=== PATIENT | male | born 1960 | race Caucasian/White ===

== ENCOUNTER → 2017-02-17 | Outpatient (CLI) | payer BC ==
[~2017-02-17] MED LIST: CETI10TA56 PO; CYCL-83 PO; DIPH25CA84 PO; MELO-28 PO; OMEP20CA81 PO; TRAM-277 PO; [UNRECOGNIZED DRUG - CODE] PO
--- NOTE | 2017-02-17 12:03 | DI ---
Indication: ITS.REASON: Z96.652 S/P LEFT TKA; M79.662 LEFT CALF PAIN PROCEDURE: US VENOUS DUPLEX, LOWER EXT LT: Encounter: Initial Comparison: None Technique: Color Doppler duplex and grayscale sonographic imaging of the left lower extremity was performed. Findings: There is no evidence for acute deep venous thrombosis in the left thigh. Specifically, serial graded compression was performed from the inguinal ligament to the popliteal bifurcation, on the left thigh, demonstrating appropriate compressibility of the deep venous system. In addition, color and pulsed Doppler demonstrate appropriate spontaneous flow, variation with respiration, and augmentation with calf compression. At the ankle, normal flow is identified in the posterior tibial veins; these vessels are also normal in caliber. In the calf area of pain there is a fluid collection present measuring 5.2 cm in length and 8 mm in thickness. Differential considerations include ruptured Blas's cyst and small hematoma. Impression: No evidence of acute DVT in the left lower limb. .
== END ==
LOC: IMA 11:13
PROVIDERS: ATTEND Orthopaedic Surgery Adult Reconstructive Orthopaedic Surgery
DX: M79.662 Pain in left lower leg (principal); Z96.652 Presence of left artificial knee joint